=== PATIENT | female | born 1975 | race Native Hawaiian/Other Pacific Islander ===

== ENCOUNTER 2016-11-18 14:24 | Inpatient (IN) | payer MEDICAID ==
[2016-11-18] MEDS ORDERED: Ondansetron 4 MG/2 ML SDV IVPUSH ONE (14:52)
[2016-11-18] MEDS ORDERED: MVI, Adult with Vitamin K 10 ML, Thiamine 200 MG, Folic Acid 1 MG, Magnesium Sulfate 2 ... IV ONE ×5 (14:52)
[2016-11-18] MEDS ORDERED: LORazepam 2 MG/ML MDV IVPUSH ONE ×2 (14:52→16:03)
[2016-11-18] MEDS ORDERED: Promethazine 12.5 MG in Sodium Chloride 0.9% 50 ML IV STA (14:55)
[2016-11-18] MEDS ORDERED: HYDROmorphone 0.5 MG/0.5 ML Syringe IVPUSH ONE (14:57)
--- NOTE | 2016-11-18 15:04 | EDM.PDOC ---
ED HPI GI/ABDOMINAL - General Chief Complaint: Abdominal Pain Stated Complaint: [facility] Time Seen by Provider: 11/18/16 14:45 Source: Reports: Patient, EMS, RN notes reviewed History Limitations: Reports: No limitations - History of Present Illness INITIAL COMMENTS - FREE TEXT/NARRATIVE: 41-year-old female presents emergency department today with complaint of abdominal pain nausea vomiting bloody emesis and bloody stool she is currently a resident at [facility] she started developing more abdominal pain over the last couple of hours it has progressively gotten worse throughout the day bloody stool today last used alcohol on November 16 usually consumes vodka she states she has had one year of sobriety in between this she is never gone through full delirium tremors the past has led to treatment one time prior, she is also complaining of seeing spots - Related Data Allergies/ADRs: Allergies Allergy/AdvReac Type Severity Reaction Status Date / Time bupropion Allergy Cannot Verified 11/18/16 14:43 Remember droperidol Allergy Cannot Verified 11/18/16 14:43 Remember levofloxacin [From Levaquin] Allergy Cannot Verified 11/18/16 14:43 Remember metoclopramide [From Reglan] Allergy Cannot Verified 11/18/16 14:43 Remember ondansetron Allergy Itching Verified 11/18/16 14:43 [From Zofran (as hydrochloride)] prochlorperazine Allergy Cannot Verified 11/18/16 14:43 [From Compazine] Remember shellfish derived Allergy Cannot Verified 11/18/16 14:43 Remember tramadol Allergy Cannot Verified 11/18/16 14:43 Remember Home Meds: Home Meds Acetaminophen [Tylenol] 650 mg PO ASDIRECTED 11/18/16 [History] Bismuth Subsalicylate [Pepto Bismol] 30 ml PO ASDIRECTED 11/18/16 [History] Diazepam [Valium] 5 - 10 mg PO ASDIRECTED 11/18/16 [History] Dimenhydrinate [Dramamine] 100 mg PO ASDIRECTED 11/18/16 [History] Ibuprofen 400 mg PO ASDIRECTED 11/18/16 [History] LORazepam [Ativan] 3 mg PO ASDIRECTED 11/18/16 [History] Promethazine [Phenergan] 25 mg PO ASDIRECTED 11/18/16 [History] cloNIDine HCl [Catapres] 03/02/17 [History] diphenhydrAMINE [Benadryl] 25 mg PO ASDIRECTED 11/18/16 [History] Past Medical History [employer] History: Reports: Psychiatric History: Reports: Anxiety - Past Surgical History Other GI Surgeries/Procedures: Splenectomy Social & Family History - Tobacco Use Smoking Status *Q: Light Tobacco Smoker Years of Tobacco use: 20 Packs/Tins Daily: 0.5 - Caffeine Use Caffeine Use: Reports: Coffee, Energy drinks, Soda - Recreational Drug Use Recreational Drug Use: No ED ROS GENERAL - Review of Systems Review Of Systems: See Below Constitutional: Denies: fever, chills HEENT: Reports: Vision change Respiratory: Reports: no symptoms Cardiovascular: Reports: Dyspnea on exertion GI/Abdominal: Reports: Abdominal pain, Bloody stool, Hematemesis, Nausea, Vomiting : Reports: no symptoms Musculoskeletal: Reports: no symptoms Skin: Reports: no symptoms Neurological: Reports: no symptoms Psychiatric: Reports: No symptoms ED EXAM, GI/ABD - Physical Exam Exam: See Below Text/Narrative:: General: female moderate discomfort secondary to abdominal pain and nausea and vomiting, alert and oriented x3 HEENT: head is atraumatic normocephalic, eyes pupils equal round reactive to light and accommodation sclera clear no conjunctivitis appreciated. Ears tympanic membranes clear and kessler landmarks and light reflex are present bilaterally canals are clear. Nose no septal deviation, nares are clear, no blood present. Mouth mucosa is moist and pink no erythema or exudate noted in soft palate, tongue is midline uvula is midline , dentition is intact. Neck: Supple no thyromegaly no tracheal deviation. Nodes: Cervical nodes subclavicular nodes nontender no palpable lymphadenopathy noted. Lungs: clear to auscultation bilaterally with symmetrical respirations, no adventitious noise appreciated. CV: Regular rate and rhythm S1 and S2 appreciated no murmurs rubs or gallops noted. Abdomen: Soft, nontender, no palpable masses or organomegaly appreciated, no distention no guarding bowel sounds are present, . Neuro: Cranial nerves II through XII grossly intact Skin: Warm and dry, intact Extremities: No lower extremity edema appreciated. Course - Vital Signs Last Recorded V/S: Last Vital Signs Temp 98.7 F 11/18/16 15:54 Pulse 79 11/18/16 16:13 Resp 20 03/02/17 16:13 BP 114/84 11/18/16 16:13 Pulse Ox 99 11/18/16 16:13 - Orders/Labs/Meds Orders: Active Orders 24 hr Category Date Time Status EKG Documentation Completion [RC] ASDIRECTED Care 11/18/16 14:54 Active Peripheral IV Care [RC] . DIRECTED Care 11/18/16 14:52 Active DRUG SCREEN, URINE [URCHEM] Stat Lab 11/18/16 17:02 Uncollected Sodium Chloride 0.9% [Saline Flush] Med 11/18/16 14:51 Active 10 ml FLUSH ASDIRECTED PRN Peripheral IV Insertion Adult [OM.PC] Urgent Oth 11/18/16 14:51 Ordered EKG 12 Lead [EK] Routine Ther 11/18/16 14:53 Ordered Medication Orders Sodium Chloride (Saline Flush) 10 ml FLUSH ASDIRECTED PRN PRN Reason: Keep Vein Open Last Admin: 11/18/16 16:35 Dose: 10 ml Labs: Laboratory Tests 11/18/16 11/18/16 11/18/16 Range/Units 15:18 15:18 15:18 WBC 7.6 (4.5-11.0) K/uL RBC 4.08 (3.30-5.50) M/uL Hgb 11.7 L (12.0-15.0) g/dL Hct 35.0 L (36.0-48.0) % MCV 86 (80-98) fL MCH 29 (27-31) pg MCHC 33 (32-36) % Plt Count 389 (150-400) K/uL Neut % (Auto) 56 (36-66) % Lymph % (Auto) 34 (24-44) % [place] % (Auto) 8 H (2-6) % Eos % (Auto) 2 (2-4) % Baso % (Auto) 0 (0-1) % PT (9.5-12.0) sec INR (0.80-1.20) APTT (27.0-36.0) sec Sodium 141 (140-148) mmol/L Potassium 4.0 (3.6-5.2) mmol/L Chloride 105 (100-108) mmol/L Carbon Dioxide 30 (21-32) mmol/L Anion Gap 6.3 (5.0-14.0) mmol/L BUN 12 (7-18) mg/dL Creatinine 0.7 (0.6-1.0) mg/dL Est Cr Clr Drug Dosing 97.09 mL/min Estimated GFR (MDRD) > 60 (>60) Glucose 107 H (74-106) mg/dL Calcium 8.6 (8.5-10.1) mg/dL Phosphorus (2.5-4.9) mg/dL Magnesium (1.8-2.4) mg/dL Total Bilirubin 0.4 (0.2-1.0) mg/dL AST 30 (15-37) U/L ALT 30 (12-78) U/L Alkaline Phosphatase 86 (46-116) U/L Total Protein 6.9 (6.4-8.2) g/dL Albumin 3.9 (3.4-5.0) g/dL Globulin 3.0 (2.3-3.5) g/dL Albumin/Globulin Ratio 1.3 (1.2-2.2) Lipase (73-393) U/L Urine Color Urine Appearance Urine pH (4.5-8.0) Ur Specific Howell (1.008-1.030) Urine Protein (NEGATIVE) mg/dL Urine Glucose (UA) (NEGATIVE) mg/dL Urine Ketones (NEGATIVE) mg/dL Urine Occult Blood (NEGATIVE) Urine Nitrite (NEGATIVE) Urine Bilirubin (NEGATIVE) Urine Urobilinogen (NORMAL) mg/dL Ur Leukocyte Esterase (NEGATIVE) Urine RBC (0-5) Urine WBC (0-5) Ur Epithelial Cells Amorphous Sediment Urine Bacteria Urine Mucus Urine Other Urine HCG, Qual Ethyl Alcohol < 3 mg/dL 11/18/16 11/18/16 11/18/16 Range/Units 15:18 15:18 16:09 WBC (4.5-11.0) K/uL RBC (3.30-5.50) M/uL Hgb (12.0-15.0) g/dL Hct (36.0-48.0) % MCV (80-98) fL MCH (27-31) pg MCHC (32-36) % Plt Count (150-400) K/uL Neut % (Auto) (36-66) % Lymph % (Auto) (24-44) % [place] % (Auto) (2-6) % Eos % (Auto) (2-4) % Baso % (Auto) (0-1) % PT 10.6 (9.5-12.0) sec INR 1.00 (0.80-1.20) APTT 25.8 L (27.0-36.0) sec Sodium (140-148) mmol/L Potassium (3.6-5.2) mmol/L Chloride (100-108) mmol/L Carbon Dioxide (21-32) mmol/L Anion Gap (5.0-14.0) mmol/L BUN (7-18) mg/dL Creatinine (0.6-1.0) mg/dL Est Cr Clr Drug Dosing mL/min Estimated GFR (MDRD) (>60) Glucose (74-106) mg/dL Calcium (8.5-10.1) mg/dL Phosphorus 4.3 (2.5-4.9) mg/dL Magnesium 1.7 L (1.8-2.4) mg/dL Total Bilirubin (0.2-1.0) mg/dL AST (15-37) U/L ALT (12-78) U/L Alkaline Phosphatase (46-116) U/L Total Protein (6.4-8.2) g/dL Albumin (3.4-5.0) g/dL Globulin (2.3-3.5) g/dL Albumin/Globulin Ratio (1.2-2.2) Lipase (73-393) U/L Urine Color Urine Appearance Urine pH (4.5-8.0) Ur Specific Howell (1.008-1.030) Urine Protein (NEGATIVE) mg/dL Urine Glucose (UA) (NEGATIVE) mg/dL Urine Ketones (NEGATIVE) mg/dL Urine Occult Blood (NEGATIVE) Urine Nitrite (NEGATIVE) Urine Bilirubin (NEGATIVE) Urine Urobilinogen (NORMAL) mg/dL Ur Leukocyte Esterase (NEGATIVE) Urine RBC (0-5) Urine WBC (0-5) Ur Epithelial Cells Amorphous Sediment Urine Bacteria Urine Mucus Urine Other Urine HCG, Qual Negative Ethyl Alcohol mg/dL 11/18/16 11/18/16 Range/Units 16:09 16:59 WBC (4.5-11.0) K/uL RBC (3.30-5.50) M/uL Hgb (12.0-15.0) g/dL Hct (36.0-48.0) % MCV (80-98) fL MCH (27-31) pg MCHC (32-36) % Plt Count (150-400) K/uL Neut % (Auto) (36-66) % Lymph % (Auto) (24-44) % [place] % (Auto) (2-6) % Eos % (Auto) (2-4) % Baso % (Auto) (0-1) % PT (9.5-12.0) sec INR (0.80-1.20) APTT (27.0-36.0) sec Sodium (140-148) mmol/L Potassium (3.6-5.2) mmol/L Chloride (100-108) mmol/L Carbon Dioxide (21-32) mmol/L Anion Gap (5.0-14.0) mmol/L BUN (7-18) mg/dL Creatinine (0.6-1.0) mg/dL Est Cr Clr Drug Dosing mL/min Estimated GFR (MDRD) (>60) Glucose (74-106) mg/dL Calcium (8.5-10.1) mg/dL Phosphorus (2.5-4.9) mg/dL Magnesium (1.8-2.4) mg/dL Total Bilirubin (0.2-1.0) mg/dL AST (15-37) U/L ALT (12-78) U/L Alkaline Phosphatase (46-116) U/L Total Protein (6.4-8.2) g/dL Albumin (3.4-5.0) g/dL Globulin (2.3-3.5) g/dL Albumin/Globulin Ratio (1.2-2.2) Lipase 60 L (73-393) U/L Urine Color Yellow Urine Appearance Clear Urine pH 7.0 (4.5-8.0) Ur Specific [place] 1.010 (1.008-1.030) Urine Protein Negative (NEGATIVE) mg/dL Urine Glucose (UA) Normal (NEGATIVE) mg/dL Urine Ketones Negative (NEGATIVE) mg/dL Urine Occult Blood Negative (NEGATIVE) Urine Nitrite Negative (NEGATIVE) Urine Bilirubin Negative (NEGATIVE) Urine Urobilinogen Normal (NORMAL) mg/dL Ur Leukocyte Esterase Negative (NEGATIVE) Urine RBC 0-5 (0-5) Urine WBC 0-5 (0-5) Ur Epithelial Cells Few Amorphous Sediment Not seen Urine Bacteria Few Urine Mucus Not seen Urine Other Urine HCG, Qual Ethyl Alcohol mg/dL Meds: Medications Generic Name Dose Route Start Last Admin Trade Name Jennifer PRN Reason Stop Dose Admin Sodium Chloride 10 ml 11/18/16 14:51 11/18/16 16:35 Saline Flush FLUSH 10 ml ASDIRECTED PRN Administration Keep Vein Open Discontinued Medications Generic Name Dose Route Start Last Admin Trade Name Jennifer PRN Reason Stop Dose Admin Hydromorphone HCl 0.5 mg 11/18/16 14:57 11/18/16 16:25 Dilaudid IVPUSH 11/18/16 14:58 0.5 mg ONETIME ONE Administration Hydromorphone HCl 1 mg 11/18/16 16:59 11/18/16 17:09 Dilaudid IVPUSH 11/18/16 17:00 1 mg ONETIME ONE Administration Multivitamins/Minerals 10 ml/ 1,016.2 mls @ 500 mls/hr 11/18/16 14:52 16:30 Thiamine HCl 200 mg/ Folic IV 11/18/16 16:53 500 mls/hr Acid 1 mg/ Magnesium Sulfate 2 ONETIME ONE Administration gm/ Dextrose/Lactated Ringer' s Promethazine HCl 12.5 mg/ 50.5 mls @ 200 mls/hr 11/18/16 14:55 11/18/16 16:31 Sodium Chloride IV 11/18/16 15:10 200 mls/hr NOW STA Administration Lorazepam 2 mg 11/18/16 14:52 11/18/16 16:35 Ativan IVPUSH 11/18/16 14:53 Not Given ONETIME ONE Lorazepam 2 mg 11/18/16 15:50 11/18/16 16:35 Ativan IM 11/18/16 15:51 Not Given ONETIME ONE Lorazepam 2 mg 11/18/16 16:03 11/18/16 16:34 Ativan IVPUSH 11/18/16 16:04 2 mg ONETIME ONE Administration Ondansetron HCl 4 mg 11/18/16 14:52 11/18/16 14:57 Zofran IVPUSH 11/18/16 14:53 Not Given ONETIME ONE Departure - Departure Time of Disposition: 17:11 Disposition: Admitted As Inpatient 68 Condition: fair Clinical Impression: Bright red blood per rectum Alcohol withdrawal Qualifiers: Complication of substance-induced condition: with unspecified complication Qualified Code(s): F10.239 - Alcohol dependence with withdrawal, unspecified Forms: ED Department Discharge - My Orders Last 24 Hours: My Active Orders 11/18/16 14:51 Sodium Chloride 0.9% [Saline Flush] 10 ml FLUSH ASDIRECTED PRN Peripheral IV Insertion Adult [OM.PC] Urgent 11/18/16 14:52 Peripheral IV Care [RC] . DIRECTED 11/18/16 14:53 EKG 12 Lead [EK] Routine 11/18/16 14:54 EKG Documentation Completion [RC] ASDIRECTED 11/18/16 17:02 DRUG SCREEN, URINE [URCHEM] Stat - Assessment/Plan Last 24 Hours: My Active Orders 11/18/16 14:51 Sodium Chloride 0.9% [Saline Flush] 10 ml FLUSH ASDIRECTED PRN Peripheral IV Insertion Adult [OM.PC] Urgent 11/18/16 14:52 Peripheral IV Care [RC] . DIRECTED 11/18/16 14:53 EKG 12 Lead [EK] Routine 11/18/16 14:54 EKG Documentation Completion [RC] ASDIRECTED 11/18/16 17:02 DRUG SCREEN, URINE [URCHEM] Stat Plan: Assessment Acuity = acute Site and laterality = bright red blood per rectum, alcohol withdrawal, him and his Etiology = secondary to alcohol use Manifestations = none Location of injury = home Lab values = hemoglobin 11.7 consistent normochromic anemia INR within normal limits 1.0 magnesium low at 1.7 consistent hypomagnesemia alcohol less than 3 urine drug screen is pending Plan call discussed case with Dr. Stanton he agreed to evaluate the patient in the ED for hospital admission This note was dictated using [employer] voice recognition software please call with any questions.
[2016-11-18] MEDS ORDERED: LORazepam 2 MG/ML MDV IM ONE (15:50)
[2016-11-18] MEDS: Sodium Chloride 0.9% 10 ML Syringe FLUSH PRN ×3 (16:35→23:32)
[2016-11-18] MEDS ORDERED: HYDROmorphone 1 MG/ML Syringe IVPUSH ONE (16:59)
[2016-11-18] MEDS ORDERED: DIMENHYDRINATE PO SCH (17:45)
[2016-11-18] MEDS ORDERED: Bismuth Subsalicylate 262 MG/15 ML Susp 236 ML Bottle PO SCH (17:45)
--- NOTE | 2016-11-18 17:50 | PCM.HP ---
H&P History of Present Illness - General Date of Service: 11/18/16 Admit Problem/Dx: Admission Diagnosis/Problem Admission Diagnosis/Problem Abdominal pain Source of Information: Patient History Limitations: Reports: No limitations - History of Present Illness Initial Comments - Free Text/Narative: This is a 41-year-old [place] female who came to [place] because of alcohol intoxication. She said she drank a little bit of alcohol a day she came in only one quart. She states that she drinks more than that on her regular basis. This afternoon she threw up blood and then she had a large amount of blood in her stools and she is very concerned. She claimed that she's never had this happen before. She said her last menstrual period was over a year ago and nothing since she states that she is in menopause. She does have abdominal pain throughout her abdomen and 22 her right back area is generalized pain throughout the abdomen particularly in the epigastric. Onset of Symptoms: Reports: gradual Duration of Symptoms: Reports: Day(s): Location: Reports: abdomen Worsens with: Reports: Other (Passing stools.) Associated Symptoms: Reports: loss of appetite, nausea/vomiting Right Lower Abdominal Pain Score (Numeric/FACES): 8 - Related Data Allergies/Adverse Reactions: Allergies Allergy/AdvReac Type Severity Reaction Status Date / Time bupropion Allergy Cannot Verified 11/18/16 14:43 Remember droperidol Allergy Cannot Verified 11/18/16 14:43 Remember levofloxacin [From Levaquin] Allergy Cannot Verified 11/18/16 14:43 Remember metoclopramide [From Reglan] Allergy Cannot Verified 11/18/16 14:43 Remember ondansetron Allergy Itching Verified 11/18/16 14:43 [From Zofran (as hydrochloride)] prochlorperazine Allergy Cannot Verified 11/18/16 14:43 [From Compazine] Remember shellfish derived Allergy Cannot Verified 11/18/16 14:43 Remember tramadol Allergy Cannot Verified 11/18/16 14:43 Remember Home Medications: Home Meds Acetaminophen [Tylenol] 650 mg PO ASDIRECTED 11/18/16 [History] Bismuth Subsalicylate [Pepto Bismol] 30 ml PO ASDIRECTED 11/18/16 [History] Diazepam [Valium] 5 - 10 mg PO ASDIRECTED 11/18/16 [History] Dimenhydrinate [Dramamine] 100 mg PO ASDIRECTED 11/18/16 [History] Ibuprofen 400 mg PO ASDIRECTED 11/18/16 [History] LORazepam [Ativan] 3 mg PO ASDIRECTED 11/18/16 [History] Promethazine [Phenergan] 25 mg PO ASDIRECTED 11/18/16 [History] cloNIDine HCl [Catapres] 11/18/16 [History] diphenhydrAMINE [Benadryl] 25 mg PO ASDIRECTED 11/18/16 [History] 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: Psychiatric History: Reports: Anxiety - Past Surgical History Other GI Surgeries/Procedures: Splenectomy Social & Family History - Tobacco Use Smoking Status *Q: Light Tobacco Smoker Years of Tobacco use: 20 Packs/Tins Daily: 0.5 - Caffeine Use Caffeine Use: Reports: Coffee, Energy drinks, Soda - Recreational Drug Use Recreational Drug Use: No H&P Review of Systems - Review of Systems: Review Of Systems: See Below General: Reports: weakness HEENT: Reports: no symptoms Pulmonary: Reports: no symptoms Cardiovascular: Reports: no symptoms Gastrointestinal: Reports: Abdominal pain, Bloody stool, Hematemesis Genitourinary: Reports: no symptoms Musculoskeletal: Reports: no symptoms Skin: Reports: no symptoms Psychiatric: Reports: anxiety Neurological: Reports: weakness Exam - Exam Exam: See Below - Vital Signs Vital Signs: Last Vital Signs Temp 98.7 F 11/18/16 15:54 Pulse 79 11/18/16 16:13 Resp 20 11/18/16 16:13 BP 114/84 11/18/16 16:13 Pulse Ox 99 11/18/16 16:13 Weight: 170 lb - Exam General: alert, moderate distress HEENT: PERRLA, Conjunctiva clear, EACs clear, Hearing intact, Mucosa moist & pink, Normal nasal septum, Posterior pharynx clear Neck: supple Lungs: Clear to auscultation, Normal respiratory effort Cardiovascular: regular rate, regular rhythm Abdomen: normal bowel sounds, soft (Female) Exam: Normal bimanual exam, Other (No blood in the vaginal vault) Rectal (Female) Exam: Normal Exam, Normal rectal tone Peripheral Pulses: 1+: radial (L), radial (R) Neurological: cranial nerves intact Neuro Extensive - Mental Status: alert, oriented x3, normal mood/affect, memory intact Neuro Extensive - Motor, Sensory, Reflexes: CN II-XII intact, normal reflexes Psychiatric: alert, anxious - Patient Data Lab Results last 24 hrs: Laboratory Results - last 24 hr 11/18/16 11/18/16 11/18/16 Range/Units 15:18 15:18 15:18 WBC 7.6 (4.5-11.0) K/uL RBC 4.08 (3.30-5.50) M/uL Hgb 11.7 L (12.0-15.0) g/dL Hct 35.0 L (36.0-48.0) % MCV 86 (80-98) fL MCH 29 (27-31) pg MCHC 33 (32-36) % Plt Count 389 (150-400) K/uL Neut % (Auto) 56 (36-66) % Lymph % (Auto) 34 (24-44) % [place] % (Auto) 8 H (2-6) % Eos % (Auto) 2 (2-4) % Baso % (Auto) 0 (0-1) % PT (9.5-12.0) sec INR (0.80-1.20) APTT (27.0-36.0) sec Sodium 141 (140-148) mmol/L Potassium 4.0 (3.6-5.2) mmol/L Chloride 105 (100-108) mmol/L Carbon Dioxide 30 (21-32) mmol/L Anion Gap 6.3 (5.0-14.0) mmol/L BUN 12 (7-18) mg/dL Creatinine 0.7 (0.6-1.0) mg/dL Est Cr Clr Drug Dosing 97.09 mL/min Estimated GFR (MDRD) > 60 (>60) Glucose 107 H (74-106) mg/dL Calcium 8.6 (8.5-10.1) mg/dL Phosphorus (2.5-4.9) mg/dL Magnesium (1.8-2.4) mg/dL Total Bilirubin 0.4 (0.2-1.0) mg/dL AST 30 (15-37) U/L ALT 30 (12-78) U/L Alkaline Phosphatase 86 (46-116) U/L Total Protein 6.9 (6.4-8.2) g/dL Albumin 3.9 (3.4-5.0) g/dL Globulin 3.0 (2.3-3.5) g/dL Albumin/Globulin Ratio 1.3 (1.2-2.2) Lipase (73-393) U/L Urine Color Urine Appearance Urine pH (4.5-8.0) Ur Specific [place] (1.008-1.030) Urine Protein (NEGATIVE) mg/dL Urine Glucose (UA) (NEGATIVE) mg/dL Urine Ketones (NEGATIVE) mg/dL Urine Occult Blood (NEGATIVE) Urine Nitrite (NEGATIVE) Urine Bilirubin (NEGATIVE) Urine Urobilinogen (NORMAL) mg/dL Ur Leukocyte Esterase (NEGATIVE) Urine RBC (0-5) Urine WBC (0-5) Ur Epithelial Cells Amorphous Sediment Urine Bacteria Urine Mucus Urine Other Urine HCG, Qual Urine Opiates Screen (NEGATIVE) Ur Oxycodone Screen (NEGATIVE) Urine Methadone Screen (NEGATIVE) Ur Propoxyphene Screen (NEGATIVE) Ur Barbiturates Screen (NEGATIVE) Ur Tricyclics Screen (NEGATIVE) Ur Phencyclidine Scrn (NEGATIVE) Ur Amphetamine Screen (NEGATIVE) U Methamphetamines Scrn (NEGATIVE) Urine MDMA Screen (NEGATIVE) U Benzodiazepines Scrn (NEGATIVE) U Cocaine Metab Screen (NEGATIVE) U Marijuana (THC) Screen (NEGATIVE) Ethyl Alcohol < 3 mg/dL 11/18/16 11/18/16 11/18/16 Range/Units 15:18 15:18 16:09 WBC (4.5-11.0) K/uL RBC (3.30-5.50) M/uL Hgb (12.0-15.0) g/dL Hct (36.0-48.0) % MCV (80-98) fL MCH (27-31) pg MCHC (32-36) % Plt Count (150-400) K/uL Neut % (Auto) (36-66) % Lymph % (Auto) (24-44) % [place] % (Auto) (2-6) % Eos % (Auto) (2-4) % Baso % (Auto) (0-1) % PT 10.6 (9.5-12.0) sec INR 1.00 (0.80-1.20) APTT 25.8 L (27.0-36.0) sec Sodium (140-148) mmol/L Potassium (3.6-5.2) mmol/L Chloride (100-108) mmol/L Carbon Dioxide (21-32) mmol/L Anion Gap (5.0-14.0) mmol/L BUN (7-18) mg/dL Creatinine (0.6-1.0) mg/dL Est Cr Clr Drug Dosing mL/min Estimated GFR (MDRD) (>60) Glucose (74-106) mg/dL Calcium (8.5-10.1) mg/dL Phosphorus 4.3 (2.5-4.9) mg/dL Magnesium 1.7 L (1.8-2.4) mg/dL Total Bilirubin (0.2-1.0) mg/dL AST (15-37) U/L ALT (12-78) U/L Alkaline Phosphatase (46-116) U/L Total Protein (6.4-8.2) g/dL Albumin (3.4-5.0) g/dL Globulin (2.3-3.5) g/dL Albumin/Globulin Ratio (1.2-2.2) Lipase (73-393) U/L Urine Color Urine Appearance Urine pH (4.5-8.0) Ur Specific [place] (1.008-1.030) Urine Protein (NEGATIVE) mg/dL Urine Glucose (UA) (NEGATIVE) mg/dL Urine Ketones (NEGATIVE) mg/dL Urine Occult Blood (NEGATIVE) Urine Nitrite (NEGATIVE) Urine Bilirubin (NEGATIVE) Urine Urobilinogen (NORMAL) mg/dL Ur Leukocyte Esterase (NEGATIVE) Urine RBC (0-5) Urine WBC (0-5) Ur Epithelial Cells Amorphous Sediment Urine Bacteria Urine Mucus Urine Other Urine HCG, Qual Negative Urine Opiates Screen (NEGATIVE) Ur Oxycodone Screen (NEGATIVE) Urine Methadone Screen (NEGATIVE) Ur Propoxyphene Screen (NEGATIVE) Ur Barbiturates Screen (NEGATIVE) Ur Tricyclics Screen (NEGATIVE) Ur Phencyclidine Scrn (NEGATIVE) Ur Amphetamine Screen (NEGATIVE) U Methamphetamines Scrn (NEGATIVE) Urine MDMA Screen (NEGATIVE) U Benzodiazepines Scrn (NEGATIVE) U Cocaine Metab Screen (NEGATIVE) U Marijuana (THC) Screen (NEGATIVE) Ethyl Alcohol mg/dL 11/18/16 11/18/16 11/18/16 Range/Units 16:09 16:59 17:11 WBC (4.5-11.0) K/uL RBC (3.30-5.50) M/uL Hgb (12.0-15.0) g/dL Hct (36.0-48.0) % MCV (80-98) fL MCH (27-31) pg MCHC (32-36) % Plt Count (150-400) K/uL Neut % (Auto) (36-66) % Lymph % (Auto) (24-44) % [place] % (Auto) (2-6) % Eos % (Auto) (2-4) % Baso % (Auto) (0-1) % PT (9.5-12.0) sec INR (0.80-1.20) APTT (27.0-36.0) sec Sodium (140-148) mmol/L Potassium (3.6-5.2) mmol/L Chloride (100-108) mmol/L Carbon Dioxide (21-32) mmol/L Anion Gap (5.0-14.0) mmol/L BUN (7-18) mg/dL Creatinine (0.6-1.0) mg/dL Est Cr Clr Drug Dosing mL/min Estimated GFR (MDRD) (>60) Glucose (74-106) mg/dL Calcium (8.5-10.1) mg/dL Phosphorus (2.5-4.9) mg/dL Magnesium (1.8-2.4) mg/dL Total Bilirubin (0.2-1.0) mg/dL AST (15-37) U/L ALT (12-78) U/L Alkaline Phosphatase (46-116) U/L Total Protein (6.4-8.2) g/dL Albumin (3.4-5.0) g/dL Globulin (2.3-3.5) g/dL Albumin/Globulin Ratio (1.2-2.2) Lipase 60 L (73-393) U/L Urine Color Yellow Urine Appearance Clear Urine pH 7.0 (4.5-8.0) Ur Specific [place] 1.010 (1.008-1.030) Urine Protein Negative (NEGATIVE) mg/dL Urine Glucose (UA) Normal (NEGATIVE) mg/dL Urine Ketones Negative (NEGATIVE) mg/dL Urine Occult Blood Negative (NEGATIVE) Urine Nitrite Negative (NEGATIVE) Urine Bilirubin Negative (NEGATIVE) Urine Urobilinogen Normal (NORMAL) mg/dL Ur Leukocyte Esterase Negative (NEGATIVE) Urine RBC 0-5 (0-5) Urine WBC 0-5 (0-5) Ur Epithelial Cells Few Amorphous Sediment Not seen Urine Bacteria Few Urine Mucus Not seen Urine Other Urine HCG, Qual Urine Opiates Screen Negative (NEGATIVE) Ur Oxycodone Screen Negative (NEGATIVE) Urine Methadone Screen Negative (NEGATIVE) Ur Propoxyphene Screen Negative (NEGATIVE) Ur Barbiturates Screen Negative (NEGATIVE) Ur Tricyclics Screen Negative (NEGATIVE) Ur Phencyclidine Scrn Negative (NEGATIVE) Ur Amphetamine Screen Negative (NEGATIVE) U Methamphetamines Scrn Negative (NEGATIVE) Urine MDMA Screen Negative (NEGATIVE) U Benzodiazepines Scrn Positive H (NEGATIVE) U Cocaine Metab Screen Negative (NEGATIVE) U Marijuana (THC) Screen Negative (NEGATIVE) Ethyl Alcohol mg/dL Result Diagrams: 11/18/16 15:18 11/18/16 15:18 *Q Meaningful Use (ADM) - VTE *Q VTE Criteria *Q: - Stroke *Q Stroke Criteria *Q: - AMI *Q AMI Criteria *Q: Problem List Initiated/Reviewed/Updated: Yes Orders Last 24hrs: Active Orders 24 hr Category Date Time Status Patient Status [ADT] Routine ADT 11/18/16 17:21 Ordered CIWAA Assessment [RC] ASDIRECTED Care 11/18/16 17:42 Ordered EKG Documentation Completion [RC] ASDIRECTED Care 11/18/16 14:54 Active Height and Weight [RC] DAILY Care 11/18/16 17:21 Ordered Intake and Output [RC] QSHIFT Care 11/18/16 17:34 Ordered Oxygen Therapy [RC] PRN Care 11/18/16 17:21 Ordered Peripheral IV Care [RC] . DIRECTED Care 11/18/16 14:52 Active Up ad Tamiko [RC] ASDIRECTED Care 11/18/16 17:21 Ordered VTE/DVT Education [RC] Per Unit Routine Care 11/18/16 17:21 Ordered Vital Signs [RC] Q4H Care 11/18/16 17:21 Ordered Bismuth Subsalicylate [Pepto Bismol] Med 11/18/16 17:45 Ordered 30 ml PO ASDIRECTED Dimenhydrinate [Dramamine] Med 11/18/16 17:45 Ordered 100 mg PO ASDIRECTED Sodium Chloride 0.9% [Saline Flush] Med 11/18/16 14:51 Active 10 ml FLUSH ASDIRECTED PRN Peripheral IV Insertion Adult [OM.PC] Urgent Oth 11/18/16 14:51 Ordered Resuscitation Status Routine Resus Stat 11/18/16 17:21 Ordered EKG 12 Lead [EK] Routine Ther 11/18/16 14:53 Ordered Medication Orders Bismuth Subsalicylate (Pepto Bismol) 30 ml PO ASDIRECTED FLORENCIA Non-Formulary Medication (Dimenhydrinate [Dramamine]) 100 mg PO ASDIRECTED FLORENCIA Sodium Chloride (Saline Flush) 10 ml FLUSH ASDIRECTED PRN PRN Reason: Keep Vein Open Last Admin: 11/18/16 16:35 Dose: 10 ml Assessment/Plan Comment:: Assessment/Plan:#1. GI blood loss Upper and Lower GI. I scheduled her for a colonoscopy and the EEG tomorrow. Will also do an ultrasound of the abdomen and pelvis tonight. #2. Alcoholism: Will treat with Valium per protocol for alcohol withdrawal. #3. Early menopause.
[2016-11-18] MEDS ORDERED: Bisacodyl 5 MG Tab PO ONE ×2 (18:00→22:00)
[2016-11-18] MEDS ORDERED: Polyethylene Glycol 3350 Powder 238 GM Bot PO ONE (19:00)
[2016-11-18] MEDS ORDERED: LORazepam 2 MG/ML MDV IM PRN (20:08)
[2016-11-18] MEDS: LORazepam 2 MG/ML MDV IV PRN ×2 (20:38→23:28)
[2016-11-18] MEDS ORDERED: LORazepam ORAL Concentrate 1MG/0.5ML U/D SL PRN (20:43)
[2016-11-18] MEDS ORDERED: LORazepam 1 MG Tab PO PRN (20:45)
[2016-11-18] MEDS: diphenhydrAMINE 50 MG/ML SDV IVPUSH PRN (21:16)
[2016-11-18] MEDS: HYDROmorphone 0.5 MG/0.5 ML Syringe IVPUSH PRN (22:16)
[2016-11-19] MEDS: HYDROmorphone 0.5 MG/0.5 ML Syringe IVPUSH PRN ×2 (01:54→04:19)
[2016-11-19] MEDS: LORazepam 2 MG/ML MDV IV PRN ×2 (03:00→05:26)
[2016-11-19] MEDS: Sodium Chloride 0.9% 10 ML Syringe FLUSH PRN (03:02)
[2016-11-19] MEDS: diphenhydrAMINE 50 MG/ML SDV IVPUSH PRN (03:13)
[2016-11-19] MEDS ORDERED: HYDROmorphone/Normal Saline 15 MG/30 ML PCA IV PRN (07:27)
[2016-11-19] MEDS ORDERED: Naloxone 0.4 MG/ML SDV IVPUSH PRN (07:27)
[2016-11-19] MEDS ORDERED: Propofol 200 MG/20 ML SDV ONE ×3 (07:27→08:08)
[2016-11-19] MEDS ORDERED: fentaNYL 100 MCG/2 ML SDV ONE (07:27)
[2016-11-19] MEDS ORDERED: Midazolam 1 MG/ML 2 ML SDV ONE (07:28)
--- NOTE | 2016-11-19 08:07 | PCM.OPNOTE ---
- General Post-Op/Procedure Note Date of Surgery/Procedure: 11/19/16 Operative Procedure(s): Esophageal gastroduodenoscopy Findings: Mucosal erythema, mild Pre Op Diagnosis: GI blood loss upper and lower GI Post-Op Diagnosis: Mild gastritis Primary Surgeon: Amilcar Stanton Sr Condition: Good Free Text/Narrative:: Intake & Output 11/18/16 11/19/16 11/19/16 22:59 06:59 14:59 Intake Total 1000 Balance 1000 Jose is a 41-year-old [place] who came to the emergency room last night he vomited up blood been having a lot of blood in the stool. She has been drinking vodka on a regular basis and came to [facility] for treatment of alcohol withdrawal. While in the emergency room there was obvious blood in the stool is very in character. She was admitted to treatment for alcohol withdrawal and evaluate the blood loss. Esophageal gastroduodenoscopy was done anesthesia was given by nurse dressmaker or tailor. During the procedure she tolerated the procedure well. The tube was placed into the pharynx into the esophagus without difficulty and the tube was advanced into the stomach. She had a fairly large stomach the pylorus was identified and the tube was advanced into the first and second part of the duodenum. Upon retraction of the tube noted no duodenal abnormality. The tube was brought back into the stomach. We got good observation of the greater and lesser curvature and the fundus after retroflexion of the tube. There is mild erythema noted in the antrum. Air was withdrawn from the stomach. The GE junction was identified there was a small hiatal hernia noted. The remainder the esophagus was unremarkable showing no lesions ulceration or abnormality. The vocal cords were unremarkable they move symmetrically. The tube was removed the patient tolerated the procedure well. Preop: GI blood loss, vomiting. Postop: #1. Hiatal hernia. #2. Mild gastric mucosal erythema.
--- NOTE | 2016-11-19 08:10 | PCM.OPNOTE ---
- General Post-Op/Procedure Note Date of Surgery/Procedure: 11/19/16 Operative Procedure(s): Colonoscopy Findings: Normal colon from cecum to rectum except for hemorrhoids Pre Op Diagnosis: GI blood loss Post-Op Diagnosis: Rectal hemorrhoid Condition: Good Free Text/Narrative:: Intake & Output 11/18/16 11/19/16 11/19/16 22:59 06:59 14:59 Intake Total 1000 Balance 1000 Jose is a 41-year-old [place] who came to the emergency room last night he vomited up blood been having a lot of blood in the stool. She has been drinking vodka on a regular basis and came to [facility] for treatment of alcohol withdrawal. While in the emergency room there was obvious blood in the stool is very in character. She was admitted to treatment for alcohol withdrawal and evaluate the blood loss. The Olympus 180L scope was used was placed into the rectum and advanced under direct vision. He did get to the cecum. A retraction of the tube noted no lesions ulceration or abnormality throughout the entire colon at the rectum and noted hemorrhoids. The etiology of the bleeding I feel is secondary to hemorrhoids and is of no concern at the present time as her hemoglobin is stable. Preop: GI blood loss. Postop: Hemorrhoids. Anesthesia was given by nurse frog catcher. During the procedure use 400 mg of propofol 2 mg of Versed in the 100 mcg of fentanyl.
--- NOTE | 2016-11-19 08:13 | PCM.PN ---
- General Info Date of Service: 11/19/16 Subjective Update: She stated that she has had minimal blood loss for the night after the prep. - Review of Systems General: Reports: weakness HEENT: Reports: no symptoms Pulmonary: Reports: no symptoms Cardiovascular: Reports: no symptoms Gastrointestinal: Reports: No symptoms Genitourinary: Reports: no symptoms Musculoskeletal: Reports: no symptoms Skin: Reports: no symptoms Neurological: Reports: weakness Psychiatric: Reports: anxiety - Patient Data Vitals - most recent: Last Vital Signs Temp 97.0 F 11/19/16 08:05 Pulse 63 11/19/16 08:05 Resp 12 11/19/16 08:05 BP 88/53 L 11/19/16 08:05 Pulse Ox 100 11/19/16 08:05 Weight - most recent: 163 lb 14.4 oz I&O - last 24 hours: Intake & Output 11/18/16 11/19/16 11/19/16 22:59 06:59 14:59 Intake Total 1000 Balance 1000 Med Orders - Current: Current Medications Bismuth Subsalicylate (Pepto Bismol) 30 ml PO ASDIRECTED FLORENCIA Diphenhydramine HCl (Benadryl) 25 - 50 mg IVPUSH Q4H PRN PRN Reason: Itching Last Admin: 11/19/16 03:13 Dose: 50 mg Hydromorphone HCl (Dilaudid) 0.5 - 1 mg IVPUSH Q2H PRN PRN Reason: Pain Last Admin: 11/19/16 04:19 Dose: 0.5 mg Lorazepam (Ativan) 1 - 2 mg IV Q1H PRN PRN Reason: BP/ANXIETY/ETC Last Admin: 11/19/16 05:26 Dose: 1 mg Lorazepam (Ativan) 1 - 2 mg IM Q1H PRN PRN Reason: SEE BELOW Lorazepam (Ativan Oral Concentrate 1mg/0.5 Ml U/D) 1 - 2 mg SL Q1H PRN PRN Reason: SEE BELOW Lorazepam (Ativan) 1 - 2 mg PO Q1H PRN PRN Reason: SEE BELOW Non-Formulary Medication (Dimenhydrinate [Dramamine]) 100 mg PO ASDIRECTED FLORENCIA Sodium Chloride (Saline Flush) 10 ml FLUSH ASDIRECTED PRN PRN Reason: Keep Vein Open Last Admin: 11/19/16 03:02 Dose: 10 ml Discontinued Medications Bisacodyl (Dulcolax) 10 mg PO ONETIME ONE Stop: 11/18/16 18:01 Last Admin: 11/18/16 19:51 Dose: 10 mg Bisacodyl (Dulcolax) 10 mg PO ONETIME ONE Stop: 11/18/16 22:01 Last Admin: 11/18/16 22:16 Dose: 10 mg Fentanyl (Sublimaze) Confirm Administered Dose 100 mcg .ROUTE .STK-MED ONE Stop: 11/19/16 07:28 Hydromorphone HCl (Dilaudid) 0.5 mg IVPUSH ONETIME ONE Stop: 11/18/16 14:58 Last Admin: 11/18/16 16:25 Dose: 0.5 mg Hydromorphone HCl (Dilaudid) 1 mg IVPUSH ONETIME ONE Stop: 11/18/16 17:00 Last Admin: 11/18/16 17:09 Dose: 1 mg Multivitamins/Minerals 10 ml/Thiamine HCl 200 mg/ Folic Acid 1 mg/ Magnesium Sulfate 2 gm/ Dextrose/Lactated Ringer' s 1,016.2 mls @ 500 mls/hr IV ONETIME ONE Stop: 11/18/16 16:53 Last Admin: 11/18/16 16:30 Dose: 500 mls/hr Promethazine HCl 12.5 mg/ (Sodium Chloride) 50.5 mls @ 200 mls/hr IV NOW STA Stop: 11/18/16 15:10 Last Admin: 11/18/16 16:31 Dose: 200 mls/hr Lorazepam (Ativan) 2 mg IVPUSH ONETIME ONE Stop: 11/18/16 14:53 Last Admin: 11/18/16 16:35 Dose: Not Given Lorazepam (Ativan) 2 mg IM ONETIME ONE Stop: 11/18/16 15:51 Last Admin: 11/18/16 16:35 Dose: Not Given Lorazepam (Ativan) 2 mg IVPUSH ONETIME ONE Stop: 11/18/16 16:04 Last Admin: 11/18/16 16:34 Dose: 2 mg Lorazepam (Lorazepam) 1 - 2 mg PO Q1H PRN PRN Reason: SEE BELOW Midazolam HCl (Versed 1 Mg/Ml) Confirm Administered Dose 2 mg .ROUTE .STK-MED ONE Stop: 11/19/16 07:29 Ondansetron HCl (Zofran) 4 mg IVPUSH ONETIME ONE Stop: 11/18/16 14:53 Last Admin: 11/18/16 14:57 Dose: Not Given Polyethylene Glycol (Miralax) 238 gm PO ONETIME ONE Stop: 11/18/16 19:01 Last Admin: 11/18/16 19:51 Dose: 1 bottle Propofol (Diprivan 20 Ml) Confirm Administered Dose 200 mg .ROUTE .STK-MED ONE Stop: 11/19/16 07:28 Propofol (Diprivan 20 Ml) Confirm Administered Dose 200 mg .ROUTE .STK-MED ONE Stop: 11/19/16 07:51 - Exam General: alert, oriented HEENT: Pupils equal, Pupils reactive, EOMI, Mucous membr. moist/pink Neck: supple Lungs: Clear to auscultation, Normal respiratory effort Cardiovascular: regular rate, regular rhythm Abdomen: tenderness Back Exam: normal inspection, full range of motion Extremities: no edema Skin: warm, dry, intact Psy/Mental Status: anxious - Problem List Review Problem List Initiated/Reviewed/Updated: Yes - My Orders Last 24 Hours: My Active Orders 11/18/16 17:42 CIWAA Assessment [RC] Q1H 11/18/16 17:45 Bismuth Subsalicylate [Pepto Bismol] 30 ml PO ASDIRECTED Dimenhydrinate [Dramamine] 100 mg PO ASDIRECTED 11/18/16 17:49 Abdomen Comp [US] Stat 11/18/16 18:00 Pelvis Non OB Ltd [US] Stat 11/18/16 19:58 HYDROmorphone [Dilaudid] 0.5 - 1 mg IVPUSH Q2H PRN 11/18/16 20:06 LORazepam [Ativan] 1 - 2 mg IV Q1H PRN 11/18/16 20:08 LORazepam [Ativan] 1 - 2 mg IM Q1H PRN 11/18/16 20:43 LORazepam [Ativan ORAL Concentrate 1MG/0.5 ML U/D] 1 - 2 mg SL Q1H PRN diphenhydrAMINE [Benadryl] 25 - 50 mg IVPUSH Q4H PRN 11/18/16 20:45 LORazepam [Ativan] 1 - 2 mg PO Q1H PRN 11/18/16 Dinner Clear Liquid Diet [DIET] 11/19/16 07:27 Communication Order [RC] STAT Notify Provider [RC] PRN GAS CUTTER Record [RC] PER UNIT ROUTINE Pulse Oximetry [RC] CONTINUOUS Medication Discontinuation Instructions [OM.PC] Stat 11/19/16 Breakfast NPO After Midnight [Nothing per Oral After Midnight Diet] [DIET] - Plan Plan:: Assessment/Plan:#1. GI blood loss Upper and Lower GI. Colonoscopy was done which revealed no abnormality except for hemorrhoids. The upper GI stomach small intestine esophagus was unremarkable except for a hiatal hernia. I feel that the blood loss in the stool is secondary to hemorrhoids I see no evidence of a cancerous lesion in the stomach or the colon. Her hemoglobin upon admission was 11.7. #2. Alcoholism: I feel that she needs to go back to [place] for alcohol withdrawal will discharge her there. #3. Early menopause. When she came into the emergency room I did do a vaginal exam did not find any evidence of the vaginal vault of any blood. I feel that the blood is secondary to the hemorrhoids.
--- NOTE | 2016-11-19 08:18 | PCM.DCSUM1 ---
Discharge Summary - Hospital Course Brief History: Jose is a 41-year-old ione who came to the emergency room last night she vomited up blood and having a lot of blood in the stool. She has been drinking vodka on a regular basis and came to [facility] for treatment of alcohol withdrawal. While in the emergency room there was obvious blood in the stool red in color. She was admitted for treatment for alcohol withdrawal and evaluate the blood loss. - Discharge Data Discharge Date: 11/19/16 Discharge Disposition: DC/Tfer to [facility] Condition: Good - Patient Summary/Data Operative Procedure(s) Performed: Colonoscopy Hospital Course: She was admitted to the hospital was given Ativan for alcohol withdrawal the prep was given for the colonoscopy. Colonoscopy was done which showed hemorrhoids. The EGD showed no evidence of any major bleeding in the upper GI evaluation by endoscopy. I feel that she can go back safely to [place] be treated for alcohol withdrawal I expect she'll need to be watched closely. - Patient Instructions Diet: Heart Healthy Diet Activity: As Tolerated - Discharge Plan Home Medications: Home Meds Acetaminophen [Tylenol] 650 mg PO ASDIRECTED 11/18/16 [History] Bismuth Subsalicylate [Pepto Bismol] 30 ml PO ASDIRECTED 11/18/16 [History] Diazepam [Valium] 5 - 10 mg PO ASDIRECTED 11/18/16 [History] Dimenhydrinate [Dramamine] 100 mg PO ASDIRECTED 11/18/16 [History] Ibuprofen 400 mg PO ASDIRECTED 11/18/16 [History] LORazepam [Ativan] 3 mg PO ASDIRECTED 11/18/16 [History] Promethazine [Phenergan] 25 mg PO ASDIRECTED 11/18/16 [History] cloNIDine HCl [Catapres] 11/18/16 [History] diphenhydrAMINE [Benadryl] 25 mg PO ASDIRECTED 11/18/16 [History] Forms: ED Department Discharge Referrals: PCP,None [Primary Care Provider] - - Discharge Summary/Plan Comment DC Time >30 min.: Yes - Patient Data Vitals - Most Recent: Last Vital Signs Temp 97.0 F 11/19/16 08:05 Pulse 70 11/19/16 08:10 Resp 16 11/19/16 08:10 BP 90/64 03/03/17 08:10 Pulse Ox 100 11/19/16 08:10 Weight - Most Recent: 163 lb 14.4 oz I&O - Last 24 hours: Intake & Output 11/18/16 11/19/16 11/19/16 22:59 06:59 14:59 Intake Total 1000 75 Balance 1000 75 Med Orders - Current: Current Medications Bismuth Subsalicylate (Pepto Bismol) 30 ml PO ASDIRECTED [facility] Diphenhydramine HCl (Benadryl) 25 - 50 mg IVPUSH Q4H PRN PRN Reason: Itching Last Admin: 11/19/16 03:13 Dose: 50 mg Hydromorphone HCl (Dilaudid) 0.5 - 1 mg IVPUSH Q2H PRN PRN Reason: Pain Last Admin: 11/19/16 04:19 Dose: 0.5 mg Lorazepam (Ativan) 1 - 2 mg IV Q1H PRN PRN Reason: BP/ANXIETY/ETC Last Admin: 11/19/16 05:26 Dose: 1 mg Lorazepam (Ativan) 1 - 2 mg IM Q1H PRN PRN Reason: SEE BELOW Lorazepam (Ativan Oral Concentrate 1mg/0.5 Ml U/D) 1 - 2 mg SL Q1H PRN PRN Reason: SEE BELOW Lorazepam (Ativan) 1 - 2 mg PO Q1H PRN PRN Reason: SEE BELOW Non-Formulary Medication (Dimenhydrinate [Dramamine]) 100 mg PO ASDIRECTED [facility] Sodium Chloride (Saline Flush) 10 ml FLUSH ASDIRECTED PRN PRN Reason: Keep Vein Open Last Admin: 11/19/16 03:02 Dose: 10 ml Discontinued Medications Bisacodyl (Dulcolax) 10 mg PO ONETIME ONE Stop: 11/18/16 18:01 Last Admin: 11/18/16 19:51 Dose: 10 mg Bisacodyl (Dulcolax) 10 mg PO ONETIME ONE Stop: 11/18/16 22:01 Last Admin: 11/18/16 22:16 Dose: 10 mg Fentanyl (Sublimaze) Confirm Administered Dose 100 mcg .ROUTE .STK-MED ONE Stop: 11/19/16 07:28 Hydromorphone HCl (Dilaudid) 0.5 mg IVPUSH ONETIME ONE Stop: 11/18/16 14:58 Last Admin: 11/18/16 16:25 Dose: 0.5 mg Hydromorphone HCl (Dilaudid) 1 mg IVPUSH ONETIME ONE Stop: 11/18/16 17:00 Last Admin: 11/18/16 17:09 Dose: 1 mg Multivitamins/Minerals 10 ml/Thiamine HCl 200 mg/ Folic Acid 1 mg/ Magnesium Sulfate 2 gm/ Dextrose/Lactated Ringer' s 1,016.2 mls @ 500 mls/hr IV ONETIME ONE Stop: 11/18/16 16:53 Last Admin: 11/18/16 16:30 Dose: 500 mls/hr Promethazine HCl 12.5 mg/ (Sodium Chloride) 50.5 mls @ 200 mls/hr IV NOW STA Stop: 11/18/16 15:10 Last Admin: 11/18/16 16:31 Dose: 200 mls/hr Lorazepam (Ativan) 2 mg IVPUSH ONETIME ONE Stop: 11/18/16 14:53 Last Admin: 11/18/16 16:35 Dose: Not Given Lorazepam (Ativan) 2 mg IM ONETIME ONE Stop: 11/18/16 15:51 Last Admin: 11/18/16 16:35 Dose: Not Given Lorazepam (Ativan) 2 mg IVPUSH ONETIME ONE Stop: 11/18/16 16:04 Last Admin: 11/18/16 16:34 Dose: 2 mg Lorazepam (Lorazepam) 1 - 2 mg PO Q1H PRN PRN Reason: SEE BELOW Midazolam HCl (Versed 1 Mg/Ml) Confirm Administered Dose 2 mg .ROUTE .STK-MED ONE Stop: 11/19/16 07:29 Ondansetron HCl (Zofran) 4 mg IVPUSH ONETIME ONE Stop: 11/18/16 14:53 Last Admin: 11/18/16 14:57 Dose: Not Given Polyethylene Glycol (Miralax) 238 gm PO ONETIME ONE Stop: 11/18/16 19:01 Last Admin: 11/18/16 19:51 Dose: 1 bottle Propofol (Diprivan 20 Ml) Confirm Administered Dose 200 mg .ROUTE .STK-MED ONE Stop: 11/19/16 07:28 Propofol (Diprivan 20 Ml) Confirm Administered Dose 200 mg .ROUTE .STK-MED ONE Stop: 11/19/16 07:51 Propofol (Diprivan 20 Ml) Confirm Administered Dose 200 mg .ROUTE .STK-MED ONE Stop: 11/19/16 08:09 *Q Meaningful Use (DIS) - VTE *Q VTE Criteria *Q: - Stroke *Q Stroke Criteria *Q: - AMI *Q AMI Criteria *Q:
[2016-11-19 12:08] VITALS: BP 115/81
== END 2016-11-19 12:05 | DRG 378 ==
LOC: JP.ED 14:24 → JP.ICU 17:21
PROVIDERS: ADMIT Internal Medicine; ATTEND Internal Medicine
PROC: 0DJ08ZZ Inspection of Upper Intestinal Tract, Via Natural or Artificial Opening Endoscopic (ICD-10-PCS; principal; 2016-11-18)
PROC: 0DJD8ZZ Inspection of Lower Intestinal Tract, Via Natural or Artificial Opening Endoscopic (ICD-10-PCS; principal; 2016-11-18)
DX: K62.5 Hemorrhage of anus and rectum (principal); F10.239 Alcohol dependence with withdrawal, unspecified; K92.0 Hematemesis; K44.9 Diaphragmatic hernia without obstruction or gangrene; Z91.013 Allergy to seafood; Z88.8 Allergy status to other drugs, medicaments and biological substances; K64.8 Other hemorrhoids; Y90.0 Blood alcohol level of less than 20 mg/100 ml
CPT/HCPCS: 36415; 76700; 76857; 80053; 80305; 81001; 81025; 83690; 83735; 84100; 85025; 85610; 85730; 93005; 96365; 96366; 96368; 96375; 96376; 99285-25; A9270-GY; G0480; J1170; J1200; J2060; J2250; J2550; J2704; J3010; J3411; J3475; J3490; J7042; J7050

== ENCOUNTER 2016-11-21 08:56 | Emergency (ER) | payer MEDICAID ==
[2016-11-21 09:03] VITALS: BP 114/69
[2016-11-21] MEDS ORDERED: Sodium Chloride 0.9% 10 ML Syringe FLUSH PRN (09:34)
[2016-11-21] MEDS ORDERED: Promethazine 6.25 MG in Sodium Chloride 0.9% 50 ML IV PRN ×2 (09:38→10:32)
[2016-11-21] MEDS ORDERED: HYDROmorphone 0.5 MG/0.5 ML Syringe IVPUSH ONE ×2 (09:39→11:38)
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
[2016-11-21] MEDS ORDERED: LORazepam 1 MG Tab PO ONE (11:11)
--- NOTE | 2016-11-22 11:16 | CR ---
Chest 2V FINDINGS: The heart and vascular structures are normal in appearance. No infiltrates or effusions ar e demonstrated. The skeletal structures are unremarkable. IMPRESSION: Negative exam.
== END 2016-11-21 12:51 | disposition other institution (70) ==
LOC: JP.ED 08:56
DX: R07.89 Other chest pain (principal); Z88.8 Allergy status to other drugs, medicaments and biological substances; Z79.899 Other long term (current) drug therapy; F17.210 Nicotine dependence, cigarettes, uncomplicated; Y09 Assault by unspecified means
CPT/HCPCS: 36415; 71020; 76705; 80053; 80305; 81001; 83690; 85025; 85610; 96374; 96375; 99285; A9270; J1170; J2550; J7050; 99284

== ENCOUNTER 2016-11-22 10:13 | Emergency (ER) | payer MEDICAID ==
[2016-11-22 10:29] VITALS: BP 134/94
[2016-11-22] MEDS ORDERED: HYDROmorphone 1 MG/ML Syringe IVPUSH ONE (10:46)
[2016-11-22] MEDS ORDERED: LORazepam 2 MG/ML MDV IVPUSH ONE (10:47)
[2016-11-22] MEDS ORDERED: Sodium Chloride 0.9% 10 ML Syringe FLUSH PRN ×2 (10:48→11:05)
[2016-11-22] MEDS ORDERED: Prochlorperazine 10 MG/2 ML SDV IVPUSH ONE (10:49)
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
[2016-11-22] MEDS ORDERED: Sodium Chloride 0.9% 100 ML IV ONE (11:05)
[2016-11-22] MEDS ORDERED: Iopamidol 612 MG/ML 100 ML Bottle IV PRN (11:05)
[2016-11-22] MEDS ORDERED: Promethazine 6.25 MG in Sodium Chloride 0.9% 50 ML IV STA (11:34)
[2016-11-22] MEDS: Sodium Chloride 0.9% 1,000 ML IV SCH ×2 (11:40→12:22)
[2016-11-22] MEDS ORDERED: diphenhydrAMINE 50 MG/ML SDV IVPUSH ONE (12:04)
[2016-11-22] MEDS ORDERED: Promethazine 6.25 MG in Sodium Chloride 0.9% 50 ML IV ONE (12:15)
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
[2016-11-22] MEDS ORDERED: HYDROmorphone 0.5 MG/0.5 ML Syringe IVPUSH ONE (12:50)
== END 2016-11-22 13:35 ==
LOC: JP.ED 10:13
DX: R07.89 Other chest pain (principal); F17.210 Nicotine dependence, cigarettes, uncomplicated; Z88.8 Allergy status to other drugs, medicaments and biological substances; Z88.1 Allergy status to other antibiotic agents; Z79.899 Other long term (current) drug therapy
CPT/HCPCS: 36415; 70450; 71250; 72125; 80048; 85025; 96361; 96365; 96375; 96376; 99284; 99285; J1170; J1200; J2060; J2550; J7040; J7050

== ENCOUNTER 2017-09-30 15:07 | Emergency (ER) | payer MEDICAID ==
[2017-09-30 17:34] VITALS: BP 106/64
[2017-09-30] MEDS ORDERED: Promethazine 25 MG/ML SDV IM ONE (18:09)
[2017-09-30] MEDS ORDERED: Gabapentin 300 MG Cap PO ONE (18:10)
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
== END 2017-09-30 18:34 | disposition home or self-care (01) ==
LOC: EEVIPCON 15:07 → JP.ED 15:07
DX: S39.012A Strain of muscle, fascia and tendon of lower back, initial encounter (principal); Z88.8 Allergy status to other drugs, medicaments and biological substances; Z91.013 Allergy to seafood; Z79.899 Other long term (current) drug therapy; F17.210 Nicotine dependence, cigarettes, uncomplicated; W19.XXXA Unspecified fall, initial encounter
CPT/HCPCS: 96372; 99283; A9270; J2550